=== PATIENT | male | born 1995 | race Caucasian/White ===

== ENCOUNTER 2021-05-08 13:02 | Emergency (ER) | payer BC ==
[~2021-05-08] VITALS: Ht 185.4 cm; Wt 99.8 kg
[2021-05-08 13:21] VITALS: BP 143/80
[2021-05-08] MEDS ORDERED: HYDROcodone/APAP 5/325 MG 1 TAB TAB PO ONE (14:20)
[2021-05-08] MEDS ORDERED: NALO4SPR NS (15:21)
[2021-05-08] MEDS ORDERED: ACET-8386 PO (15:21)
[2021-05-08 15:40] VITALS: BP 124/70
--- NOTE | 2021-05-08 15:41 | NUR ---
Patient discharged with v/s stable. Written and verbal after care instructions given and explained. Patient alert, oriented and verbalized understanding of instructions. Ambulatory with steady gait. All questions addressed prior to discharge. ID band removed. Patient advised to follow up with PMD. Rx of norco and narcan given. Patient educated on indication of medication including possible reaction and side effects. Opportunity to ask questions provided and answered.
== END 2021-05-08 15:41 | disposition home or self-care (01) ==
LOC: MED 13:02
DX: S63.502A Unspecified sprain of left wrist, initial encounter (principal); F17.210 Nicotine dependence, cigarettes, uncomplicated; Z88.8 Allergy status to other drugs, medicaments and biological substances; W19.XXXA Unspecified fall, initial encounter; Y93.89 Activity, other specified; Y92.89 Other specified places as the place of occurrence of the external cause; Y99.8 Other external cause status
CPT/HCPCS: 73080; 73110; 99284